=== PATIENT | female | born 1965 | race African-American/Black ===

== ENCOUNTER 2018-12-06 00:44 | Emergency (ER) | payer MEDICAID ==
[2018-12-06] MEDS ORDERED: ASPIRIN 81 MG CHEWABLE TAB PO ONE (00:53)
[2018-12-06] MEDS ORDERED: NS 1,000 ML IV ONE (00:53)
--- NOTE | 2018-12-06 00:55 | EDPHY ---
H & P Time Seen by Provider: 12/06/18 00:49 HPI/ROS: HPI CHIEF COMPLAINT: Chest pain HISTORY OF PRESENT ILLNESS: Patient is a 53-year-old female, homeless, she arrives emergency room with chest pain. She reports substernal chest pressure. She reports she is homeless and traveling from [place] to [place]. She arrives to the emergency room from outside snf and developed chest pain. 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 Denies any significant shortness of breath or pleuritic pain. Denies fever. She additionally reports diarrhea. Main complaint chest tightness chest pain. Past Medical History: History of hypertension, hyperlipidemia, obesity, DVT PE on Eliquis, CVA, reports to me mi without stents. Past Surgical History: Denies significant surgical history Social History: Denies current use of drugs alcohol tobacco. Family History: Noncontributory ROS REVIEW OF SYSTEMS: 10 Systems were reviewed and negative with the exception of the elements mentioned in the history of present illness. Exam Constitutional triage nursing summary reviewed, vital signs reviewed, awake/ alert. Eyes normal conjunctivae and sclera, EOMI, PERRLA. HENT normal inspection, atraumatic, moist mucus membranes, no epistaxis, neck supple/ no meningismus, no raccoon eyes. Respiratory clear to auscultation bilaterally, normal breath sounds, no respiratory distress, no wheezing. Cardiovascular rate normal, regular rhythm, no murmur, no edema, distal pulses normal. Gastrointestinal soft, non-tender, no rebound, no guarding, normal bowel sounds, no distension, no pulsatile mass. Genitourinary no CVA tenderness. Musculoskeletal no midline vertebral tenderness, full range of motion, no calf swelling, no tenderness of extremities, no meningismus, good pulses, neurovascularly intact. Skin pink, warm, & dry, no rash, skin atraumatic. Neurologic awake, alert and oriented x 3, AAOx3, moves all 4 extremities equally, motor intact, sensory intact, CN II-XII intact, normal cerebellar, normal vision, normal speech. Psychiatric normal mood/affect. Heme/Lymph/Immune no lymphadenopathy. Differential Diagnosis: Differential diagnosis includes but is not limited to: ACS, atypical chest pain, pneumothorax, pneumonia, pulmonary embolism, aortic dissection, congestive heart failure, tumor, musculoskeletal pain, esophageal pain, GERD, peptic ulcer disease, pancreatitis Medical Decision Making: Plan for this patient IV establishment IV fluid bolus , basic labs, EKG, troponin, chest x-ray, D-dimer, re-evaluate Re-evaluation: EKG interpretation by me on record in [facility] system. Impression time of EKG 0056, sinus rhythm rate of 84 LVH present. Biphasic T-wave V2 V3 T-wave inversion V4 V5 V6. No old EKG to compare this to. No ST elevation. ST depression also noted V5 V6. 0228: I spoke with the hospitalist service Dr. Luo, agrees to admit the patient. Chest x-ray reviewed shows cardiomegaly. Troponin is noted to be negative Patient does have a positive D-dimer. Patient has a contrast allergy dye anaphylaxis. Patient states she is compliant with her Eliquis. She is not tachycardic and she is not hypoxic. I have asked the hospitalist service to evaluate her and admit for chest pain. EKG interpretation by me on record in [facility] system. Impression time of EKG 4:23 a.m. This is a repeat EKG sinus rhythm rate of 79, abnormal T-waves V4 V5 V6. However when compared to old EKG found in the system dated 11/21/2018 similar morphology. Please see the hospitalist consult note in the system for this ER encounter. Patient had a repeat troponin. It is negative Patient is slept here for multiple hours she denies chest pain at this time. She asked repeatedly multiple times for Dilaudid. Declined to give her any Dilaudid. Patient was admitted to the hospalist service Dr. Luo, has seen and evaluated the patient. Please see Dr. Luo's Note for futher workup and management of the patient. Source: Patient, EMS Constitutional: Initial Vital Signs Heart Rate 93 12/06/18 00:49 Respiratory Rate 18 12/06/18 00:49 Blood Pressure 189/132 H 12/06/18 00:49 O2 Sat (%) 97 12/06/18 00:49 O2 Delivery Mode Room Air Allergies/Adverse Reactions: Iodinated Contrast- Oral and IV Dye Allergy (Verified 12/06/18 00:55) Home Medications: Medication Instructions Recorded Dilaudid 12/06/18 Eliquis 12/06/18 Flexeril 10 MG (*) 12/06/18 Nitroglycerin 12/06/18 morphINE 12/06/18 Medical Decision Making - Data Points Laboratory Results: Laboratory Results 12/06/18 01:15 12/06/18 01:15 Medications Given: Discontinued Medications Aspirin (Aspirin) 324 mg PO EDNOW ONE Stop: 12/06/18 00:54 Last Admin: 12/06/18 01:06 Dose: Not Given Sodium Chloride (Ns) 1,000 mls @ 0 mls/hr IV EDNOW ONE; Wide Open PRN Reason: Protocol Stop: 12/06/18 00:54 Last Admin: 12/06/18 01:05 Dose: 1,000 mls Nitroglycerin (Nitrostat) 0.4 mg SL Q5M PRN PRN Reason: Chest Pain Last Admin: 12/06/18 01:27 Dose: 0.4 mg Point of Care Test Results: Chemistry 12/06/18 12/06/18 04:20 01:19 POC Troponin I 0.03 ng/mL ng/mL 0.02 ng/mL ng/mL (0.00-0.08) (0.00-0.08) Departure - Departure Disposition: [facility] Inpatient Acute Clinical Impression: Chest pain Qualifiers: Chest pain type: unspecified Qualified Code(s): R07.9 - Chest pain, unspecified Condition: Fair Instructions: Noncardiac Chest Pain (ED) Referrals: [facility],. [Clinic] -
[2018-12-06] MEDS: NITROGLYCERIN 0.4 MG BTL SL PRN ×3 (01:03→01:27)
[2018-12-06 01:36] LABS: PLATELET COUNT 363 10^3/uL (150-400)
[2018-12-06 01:45] LABS: INR 1.04 (0.83-1.16); PROTIME(PATIENT) 13.2 SEC (12.0-15.0)
[2018-12-06 01:49] LABS: CREATINE KINASE 103 IU/L (0-156)
--- NOTE | 2018-12-06 03:14 | PDHOSCONS ---
History and Physical - Chief Complaint Neck pain, back pain, chest pain - History of Present Illness 53 yo F w/ hx of CAD, HTN, and PE presents with chest pain, neck pain, and back pain. The patient has a complicated social history where she tends to visit multiple hospitals on a daily basis. It seems this is at least partially related to prison seeking and drug seeking behavior. She presents today with complaints of neck, back, and chest pain, which are her usual set of complaints. Her chest pain is central, intermittent, and similar to her chronic chest pain complaints. Her evaluation in the ED does not reveal acute pathology with negative troponin and stable ECG when compared to prior. When I enter the room she is sleeping comfortably. When I wake her up she tells me her back hurts and she immediately asks for Dilaudid. Review of her records in [facility] demonstrates that she has visited at least one ED in [place] every day since 11/20. She was seen at both [facility] and [facility] in the last 24 hours. She was discharged from the ED in both instances after unremarkable evaluations. Evaluation prior to these visits has found acute on chronic PE's. The patient is on Eliquis with inconsistent compliance. She tells me she is currently taking her Eliquis. In addition, she has a history of refusing stress testing and cardiac catheterization. She confirms with me today that she does not wish to undergo any form of cardiac risk stratification. Case discussed with ED physician Dr. Slaughter. [facility] History Information - Allergies/Home Medication List Allergies/Adverse Reactions: Iodinated Contrast- Oral and IV Dye Allergy (Verified 12/06/18 00:55) Home Medications: Dilaudid 12/06/18 [Last Taken Unknown] Eliquis 12/06/18 [Last Taken Unknown] Flexeril 10 MG (*) 12/06/18 [Last Taken Unknown] Nitroglycerin 12/06/18 [Last Taken Unknown] morphINE 12/06/18 [Last Taken Unknown] I have personally reviewed and updated: family history, medical history - Past Medical History coronary artery disease, hypertension, pulmonary embolism - Surgical History Additional surgical history: L foot. L eye - Family History Negative for: CAD - Social History Smoking Status: Current every day smoker Review of Systems Review of Systems: ROS: 10pt was reviewed & negative except for what was stated in HPI & below Physical Exam Physical Exam: Temp Pulse Resp BP Pulse Ox 93 18 189/132 H 97 12/06/18 00:49 12/06/18 00:49 12/06/18 00:49 12/06/18 00:49 Constitutional: chronically ill appearing, obese Eyes: PERRL, anicteric sclera Ears, Nose, Mouth, Throat: moist mucous membranes, no oral mucosal ulcers Cardiovascular: regular rate and rhythym, systolic murmur Respiratory: no respiratory distress, clear to auscultation Gastrointestinal: normoactive bowel sounds, no palpable masses Skin: warm, normal color Musculoskeletal: full muscle strength, no muscle tenderness Neurologic: AAOx3, CN II-XII Intact Psychiatric: interacting appropriately, anxious Lab Data & Imaging Review 12/06/18 01:15 12/06/18 01:15 WBC 5.53 10^3/uL (3.80-9.50) 12/06/18 01:15 RBC 3.97 10^6/uL (4.18-5.33) L 12/06/18 01:15 Hgb 10.6 g/dL (12.6-16.3) L 12/06/18 01:15 Hct 33.9 % (38.0-47.0) L 12/06/18 01:15 MCV 85.4 fL (81.5-99.8) 12/06/18 01:15 MCH 26.7 pg (27.9-34.1) L 12/06/18 01:15 MCHC 31.3 g/dL (32.4-36.7) L 12/06/18 01:15 RDW 16.9 % (11.5-15.2) H 12/06/18 01:15 Plt Count 363 10^3/uL (150-400) 12/06/18 01:15 MPV 9.7 fL (8.7-11.7) 12/06/18 01:15 Neut % (Auto) 64.2 % (39.3-74.2) 12/06/18 01:15 Lymph % (Auto) 24.6 % (15.0-45.0) 12/06/18 01:15 [place] % (Auto) 8.7 % (4.5-13.0) 12/06/18 01:15 Eos % (Auto) 1.8 % (0.6-7.6) 12/06/18 01:15 Baso % (Auto) 0.5 % (0.3-1.7) 12/06/18 01:15 Nucleat RBC Rel Count 0.0 % (0.0-0.2) 12/06/18 01:15 Absolute Neuts (auto) 3.55 10^3/uL (1.70-6.50) 12/06/18 01:15 Absolute Lymphs (auto) 1.36 10^3/uL (1.00-3.00) 12/06/18 01:15 Absolute Monos (auto) 0.48 10^3/uL (0.30-0.80) 12/06/18 01:15 Absolute Eos (auto) 0.10 10^3/uL (0.03-0.40) 12/06/18 01:15 Absolute Basos (auto) 0.03 10^3/uL (0.02-0.10) 12/06/18 01:15 Absolute Nucleated RBC 0.00 10^3/uL (0-0.01) 12/06/18 01:15 Immature Gran % 0.2 % (0.0-1.1) 12/06/18 01:15 Immature Gran # 0.01 10^3/uL (0.00-0.10) 12/06/18 01:15 PT 13.2 SEC (12.0-15.0) 12/06/18 01:15 INR 1.04 (0.83-1.16) 12/06/18 01:15 APTT 28.1 SEC (23.0-38.0) 12/06/18 01:15 D-Dimer 1.24 ug/mLFEU (0.00-0.50) H 12/06/18 01:15 Sodium 139 mEq/L (135-145) 12/06/18 01:15 Potassium 3.8 mEq/L (3.5-5.2) 12/06/18 01:15 Chloride 105 mEq/L (97-110) 12/06/18 01:15 Carbon Dioxide 25 mEq/l (22-31) 12/06/18 01:15 Anion Gap 9 mEq/L (6-14) 12/06/18 01:15 BUN 16 mg/dL (7-23) 12/06/18 01:15 Creatinine 0.6 mg/dL (0.6-1.0) 12/06/18 01:15 Estimated GFR > 60 12/06/18 01:15 Glucose 112 mg/dL (70-100) H 12/06/18 01:15 Calcium 8.6 mg/dL (8.5-10.4) 12/06/18 01:15 Total Bilirubin 0.2 mg/dL (0.1-1.4) 12/06/18 01:15 Conjugated Bilirubin 0.2 mg/dL (0.0-0.5) 12/06/18 01:15 Unconjugated Bilirubin 0.0 mg/dL (0.0-1.1) 12/06/18 01:15 AST 26 IU/L (14-46) 12/06/18 01:15 ALT 40 IU/L (9-52) 12/06/18 01:15 Alkaline Phosphatase 76 IU/L (38-126) 12/06/18 01:15 Creatine Kinase 103 IU/L (0-156) 12/06/18 01:15 CK-MB (CK-2) Fraction 1.79 ng/mL (0.00-4.55) 12/06/18 01:15 POC Troponin I 0.02 ng/mL (0.00-0.08) 12/06/18 01:19 NT-Pro-B Natriuret Pep 1350 pg/mL (0-125) H 12/06/18 01:15 Total Protein 6.4 g/dL (6.3-8.2) 12/06/18 01:15 Albumin 3.2 g/dL (3.5-5.0) L 12/06/18 01:15 Lipase 196 IU/L (23-300) 12/06/18 01:15 Urine Opiates Screen NEGATIVE (NEGATIVE) 12/06/18 01:30 Urine Barbiturates NEGATIVE (NEGATIVE) 12/06/18 01:30 Ur Phencyclidine Scrn NEGATIVE (NEGATIVE) 12/06/18 01:30 Ur Amphetamine Screen NEGATIVE (NEGATIVE) 12/06/18 01:30 U Benzodiazepines Scrn NEGATIVE (NEGATIVE) 12/06/18 01:30 Urine Cocaine Screen NEGATIVE (NEGATIVE) 12/06/18 01:30 U Marijuana (THC) Screen NEGATIVE (NEGATIVE) 12/06/18 01:30 Visualized and Interpreted EKG results: Yes EKG Interpretation: Positive for: normal sinsus rhythm, other (Stable compared to prior comparison), ST elevation (V2), ST depression (Lateral leads) Assessment & Plan Assessment: 53 yo F w/ hx of CAD, HTN, and PE presents with chest pain, neck pain, and back pain. Plan: 1. Chest pain - Presentation is complicated in that patient does have history of real pathology. She has recently been diagnosed with acute on chronic PE's, for which she is on appropriate therapy with Eliquis. She has history of CAD as well but refuses further risk stratification such as stress testing or catheterization. Her evaluation in the ED today is non-acute in that her ECG is stable from prior and her troponin is negative. The remainder of her work-up is not suggestive of any unstable medical conditions. She is hemodynamically stable and saturating normally on room air. I suspect that her presentation is driven by prison-seeking and drug-seeking behavior in conjunction with poorly managed psychiatric disease. From a medical standpoint I feel that the patient is safe for discharge after initial evaluation and period of observation in the emergency department. I discussed the case with ED physician Dr. Slaughter.
[2018-12-06 04:44] VITALS: BP 188/103
--- NOTE | 2018-12-14 21:51 | CPEKG ---
Test Reason : OPEN Blood Pressure : / mmHG Vent. Rate : 084 BPM Atrial Rate : 084 BPM P-R Int : 203 ms QRS Dur : 098 ms QT Int : 398 ms P-R-T Axes : 010 -13 158 degrees QTc Int : 471 ms Sinus rhythm Borderline prolonged CO interval LVH with secondary repolarization abnormality Confirmed by Ken Mccabe ([id number]) on 12/14/2018 9:50:48 PM Referred By: Ken Mccabe Confirmed By:Ken Mccabe
== END 2018-12-06 04:51 | disposition still patient (30) ==
LOC: UNDOADMOB 02:27
DX: R07.9 Chest pain, unspecified (principal); R79.89 Other specified abnormal findings of blood chemistry; E86.9 Volume depletion, unspecified; I10 Essential (primary) hypertension; E78.5 Hyperlipidemia, unspecified; Z79.01 Long term (current) use of anticoagulants; Z86.711 Personal history of pulmonary embolism; Z86.718 Personal history of other venous thrombosis and embolism; Z59.0 Homelessness
CPT/HCPCS: 80305; 84484-ER